=== PATIENT | female | born 1990 | race Caucasian/White ===

== ENCOUNTER 2023-04-22 15:59 | Emergency (ER) | payer OTHER ==
[~2023-04-22] VITALS: Ht 162.6 cm; Wt 90.7 kg
[~2023-04-22 15:59] MED LIST: AZIT250 PO; CYCL10 PO
[2023-04-22 16:07] VITALS: BP 147/104
[2023-04-22 16:59] LABS: Influenza A, PCR NEGATIVE (NEGATIVE); Influenza B, PCR NEGATIVE (NEGATIVE); Resp Syncytial Virus, PCR NEGATIVE (NEGATIVE); SARS-Cov-2 (COVID-19) PCR, MMC NEGATIVE (NEGATIVE)
== END 2023-04-22 17:35 | disposition home or self-care (01) ==
LOC: ER 15:59
PROVIDERS: Student in an Organized Health Care Education/Training Program
DX: J06.9 Acute upper respiratory infection, unspecified (principal); Z88.0 Allergy status to penicillin; Z88.2 Allergy status to sulfonamides; Z79.899 Other long term (current) drug therapy; J45.909 Unspecified asthma, uncomplicated; Z20.822 Contact with and (suspected) exposure to COVID-19
CPT/HCPCS: 0241U; 99283; A9270